=== PATIENT | female | born 1990 | race American Indian/Alaskan Native ===

== ENCOUNTER 2017-06-08 21:04 | Emergency (ER) | payer MEDICAID ==
[2017-06-08 21:50] LABS: Hematocrit 40.3 % (30.3-42.9); Hemoglobin 13.4 gm/dl (10.1-14.3); Mean Corpuscular HGB Conc 33 % (30-34); Mean Corpuscular Hemoglobin 32 pg (28-32); Mean Corpuscular Volume 95 fl (79-97); Platelet Count 255 K/mm3 (140-440); Red Blood Count 4.24 M/mm3 (3.65-5.03); Red Cell Distribution Width 12.5 % (13.2-15.2)
[2017-06-08 22:10] LABS: Anion Gap 16 mmol/L; Blood Urea Nitrogen 9 mg/dL (7-17); Calcium 9.4 mg/dL (8.4-10.2); Carbon Dioxide 26 mmol/L (22-30); Chloride 99.8 mmol/L (98-107); Glucose 95 mg/dL (65-100); Potassium 4.1 mmol/L (3.6-5.0); Sodium 138 mmol/L (137-145)
--- NOTE | 2017-06-08 23:09 | Ultrasound Report ---
FINAL REPORT PROCEDURE: US OB TRANSVAGINAL TECHNIQUE: Real-time transvaginal sonography of the uterus, placenta, amniotic fluid, adnexa, and fetus was performed with image documentation. Measurements were obtained to determine age/size. M-mode Doppler was used to document heartbeat. HISTORY: VAG BLEED WITH PREG COMPARISON: No prior studies are available for comparison. FINDINGS: CRL: 14.3 mm, which corresponds to a gestational age of: 7 weeks, 5 days. Yolk Sac: Normal. Embryonic Cardiac Activity: None detected Gestational Sac: Normal. Amniotic fluid: Normal. Cervix: Normal. Right Ovary: Normal. Left Ovary: Normal. Estimated delivery date: 01/20/2018 Uterus and adnexa: Normal. IMPRESSION: Intrauterine gestation at 7 weeks and 5 days. There is no detected cardiac activity indicating high suspicion of demise.
--- NOTE | 2017-06-08 23:09 | Ultrasound Report ---
FINAL REPORT PROCEDURE: US OB \T\lt; = 14 WEEKS FETUS TECHNIQUE: Real-time transabdominal sonography of the uterus, placenta, amniotic fluid, adnexa, and fetus was performed with image documentation. Measurements were obtained to determine age/size. M-mode Doppler was used to document heartbeat. CPT 34593 HISTORY: VAG BLEED WITH PREG COMPARISON: No prior studies are available for comparison. FINDINGS: CRL: 14.3 mm, which corresponds to a gestational age of: 7 weeks, 5 days. Yolk Sac: Normal. Embryonic Cardiac Activity: None detected Gestational Sac: Normal. Amniotic fluid: Normal. Cervix: Normal. Right Ovary: Normal. Left Ovary: Normal. Estimated delivery date: 01/20/2018 Uterus and adnexa: Normal. IMPRESSION: Intrauterine gestation at 7 weeks and 5 days. There is no detected cardiac activity indicating high suspicion of demise.
[2017-06-08 23:30] LABS: Bacteria,Urine 2+ /HPF (Negative); Bilirubin,Urine NEG (Negative); Blood,Urine LG (Negative); Ketones,Urine NEG (Negative); Leukocyte Esterase,Urine SM (Negative); Mucus,Urine 3+ /HPF; Nitrite,Urine NEG (Negative); Protein,Urine <15 mg/dL mg/dL (Negative); Urobilinogen,Urine < 2.0 mg/dL (<2.0)
--- NOTE | 2017-06-09 00:56 | Emergency Department Report ---
ED Female HPI - General Chief complaint: Urogenital-Female Stated complaint: PREG 8WKS/VAG BLEEDING Time Seen by Provider: 06/09/17 03:50 Source: patient Mode of arrival: Ambulatory Limitations: No Limitations - History of Present Illness Initial comments: Patient here reports that she is 8 weeks and having vaginal bleeding. She says she spot in but not passing any clots. She denies any abdominal pain or discharge. She denies any back pain. She denies any urinary burning frequency or urgency. She said this is her second and she had an with the first. Denies any medical or surgical history. Patient says she has an appointment to see [facility] in [facility] this Saturday but she came in because she was having some spotting. Last Menstrual period was 03/26/2017 MD Complaint: vaginal bleeding (vaginal spotting ) -: This morning Severity scale (0 -10): 0 Are you Now?: Yes (8 weeks) Last Menstrual Period: 03/26/17 EDC: 12/31/17 Associated Symptoms: vaginal bleeding (spotting). denies: vaginal discharge, abdominal pain, nausea/vomiting, fever/chills, headaches, loss of appetite, dysuria, hematuria, rash, seizure, shortness of breath, syncope, weakness - Related Data Sexually active: No : 2 (second , one ) Previous Rx's Medication Instructions Recorded Last Taken Type Nitrofurantoin [place]/M-Cryst 100 mg PO Q12HR #14 capsule 06/09/17 Unknown Rx [Macrobid CAP] metroNIDAZOLE [Vandazole GEL] 70 gm VG QHS #7 gel.w.appl 06/09/17 Unknown Rx Allergies Allergy/AdvReac Type Severity Reaction Status Date / Time No Known Allergies Allergy Unverified 06/08/17 21:24 ED Review of Systems ROS: Stated complaint: PREG 8WKS/VAG BLEEDING Other details as noted in HPI Comment: All other systems reviewed and negative Constitutional: no symptoms reported Eyes: denies: eye pain, eye discharge, vision change Respiratory: no symptoms reported Cardiovascular: denies: chest pain, palpitations, edema, syncope Gastrointestinal: denies: abdominal pain, nausea, vomiting, diarrhea, constipation, hematemesis, melena, hematochezia Genitourinary: other (S renal spot ). denies: urgency, dysuria, frequency, hematuria, discharge, abnormal menses, dyspareunia Musculoskeletal: denies: back pain, joint swelling, arthralgia, myalgia Skin: denies: rash Neurological: denies: headache, weakness, numbness, paresthesias, confusion, abnormal gait, vertigo ED Past Medical Hx - Past Medical History Previous Medical History?: No - Surgical History Past Surgical History?: No - Family History Family history: no significant - Social History Smoking Status: Never Smoker Substance Use Type: None - Medications Home Medications: Home Medications Medication Instructions Recorded Confirmed Last Taken Type Nitrofurantoin [place]/M-Cryst 100 mg PO Q12HR #14 capsule 06/09/17 Unknown Rx [Macrobid CAP] metroNIDAZOLE [Vandazole GEL] 70 gm VG QHS #7 gel.w.appl 06/09/17 Unknown Rx ED Physical Exam - General Limitations: No Limitations General appearance: alert, in no apparent distress - Head Head exam: Present: atraumatic, normocephalic, normal inspection - Eye Eye exam: Present: normal appearance, PERRL, EOMI. Absent: periorbital swelling , periorbital tenderness Pupils: Present: normal accommodation - ENT ENT exam: Present: normal exam, normal orophraynx, mucous membranes moist - Neck Neck exam: Present: normal inspection, full ROM. Absent: tenderness, meningismus, lymphadenopathy - Respiratory Respiratory exam: Present: normal lung sounds bilaterally. Absent: respiratory distress, wheezes, chest wall tenderness, accessory muscle use - Cardiovascular Cardiovascular Exam: Present: normal rhythm, tachycardia, normal heart sounds - GI/Abdominal GI/Abdominal exam: Present: soft, normal bowel sounds. Absent: distended, tenderness, guarding, rebound, rigid, organomegaly, mass, bruit, pulsatile mass , hernia - External exam: Present: normal external exam. Absent: erythema, swelling, lesions, lacerations, ecchymosis, bleeding Speculum exam: Present: vaginal discharge, cervical discharge. Absent: erythema , vaginal bleeding, foreign body, tissue, laceration Bi-manual exam: Present: normal bi-manual exam. Absent: cervical motion tendernes, adnexal tenderness, adnexal mass, uterine enlargement, uterine tenderness - Expanded Exam Expanded Female exam: Absent: vaginal laceration, tissue present in vagina, herpetic lesions, vulvar erythema, vulvar tenderness, foreign body External exam: Present: normal Amniotic fluid: Present: none Speculum exam: Present: cervical OS closed, vaginal discharge. Absent: vaginal bleeding - Extremities Exam Extremities exam: Present: normal inspection, full ROM, normal capillary refill. Absent: tenderness, pedal edema, joint swelling, calf tenderness - Back Exam Back exam: Present: normal inspection, full ROM. Absent: tenderness, CVA tenderness (R), CVA tenderness (L), muscle spasm, paraspinal tenderness, vertebral tenderness, rash noted - Neurological Exam Neurological exam: Present: alert, oriented X3, normal gait, reflexes normal. Absent: motor sensory deficit - Psychiatric Psychiatric exam: Present: normal affect, normal mood - Skin Skin exam: Present: warm, dry, intact, normal color. Absent: rash ED Course Vital Signs 06/08/17 21:22 Temperature 98.2 F Pulse Rate 113 H Respiratory 18 Rate Blood Pressure 134/87 O2 Sat by Pulse 100 Oximetry - Reevaluation(s) Reevaluation #1: 06/09/17 05:14 Patient received Rocephin 1 g to cover UTI and possible gonorrhea and azithromycin 1 g to cover possible chlamydia. ED Medical Decision Making - Lab Data Result diagrams: 06/08/17 21:28 06/08/17 21:28 Lab Results 06/08/17 06/08/17 06/08/17 Range/Units 21:28 21:28 21:28 WBC 8.0 (4.5-11.0) K/mm3 RBC 4.24 (3.65-5.03) M/mm3 Hgb 13.4 (10.1-14.3) gm/dl Hct 40.3 (30.3-42.9) % MCV 95 (79-97) fl MCH 32 (28-32) pg MCHC 33 (30-34) % RDW 12.5 L (13.2-15.2) % Plt Count 255 (140-440) K/mm3 Sodium 138 (137-145) mmol/L Potassium 4.1 (3.6-5.0) mmol/L Chloride 99.8 (98-107) mmol/L Carbon Dioxide 26 (22-30) mmol/L Anion Gap 16 mmol/L BUN 9 (7-17) mg/dL Creatinine 0.6 L (0.7-1.2) mg/dL Estimated GFR > 60 ml/min BUN/Creatinine Ratio 15.00 % Glucose 95 (65-100) mg/dL Calcium 9.4 (8.4-10.2) mg/dL HCG, Quant 81421 H (0-4) mIU/mL Urine Color (Yellow) Urine Turbidity (Clear) Urine pH (5.0-7.0) Ur Specific [place] (1.003-1.030) Urine Protein (Negative) mg/dL Urine Glucose (UA) (Negative) mg/dL Urine Ketones (Negative) mg/dL Urine Blood (Negative) Urine Nitrite (Negative) Urine Bilirubin (Negative) Urine Urobilinogen (<2.0) mg/dL Ur Leukocyte Esterase (Negative) Urine WBC (Auto) (0.0-6.0) /HPF Urine RBC (Auto) (0.0-6.0) /HPF U Epithel Cells (Auto) (0-13.0) /HPF Urine Bacteria (Auto) (Negative) /HPF Calcium Oxalate Crystal Urine Mucus /HPF Blood Type 06/08/17 06/08/17 Range/Units 21:28 22:21 WBC (4.5-11.0) K/mm3 RBC (3.65-5.03) M/mm3 Hgb (10.1-14.3) gm/dl Hct (30.3-42.9) % MCV (79-97) fl MCH (28-32) pg MCHC (30-34) % RDW (13.2-15.2) % Plt Count (140-440) K/mm3 Sodium (137-145) mmol/L Potassium (3.6-5.0) mmol/L Chloride (98-107) mmol/L Carbon Dioxide (22-30) mmol/L Anion Gap mmol/L BUN (7-17) mg/dL Creatinine (0.7-1.2) mg/dL Estimated GFR ml/min BUN/Creatinine Ratio % Glucose (65-100) mg/dL Calcium (8.4-10.2) mg/dL HCG, Quant (0-4) mIU/mL Urine Color Domitila (Yellow) Urine Turbidity Cloudy (Clear) Urine pH 5.0 (5.0-7.0) Ur Specific Ovalo 1.029 (1.003-1.030) Urine Protein <15 mg/dl (Negative) mg/dL Urine Glucose (UA) Neg (Negative) mg/dL Urine Ketones Neg (Negative) mg/dL Urine Blood Lg (Negative) Urine Nitrite Neg (Negative) Urine Bilirubin Neg (Negative) Urine Urobilinogen < 2.0 (<2.0) mg/dL Ur Leukocyte Esterase Sm (Negative) Urine WBC (Auto) 4.0 (0.0-6.0) /HPF Urine RBC (Auto) 24.0 (0.0-6.0) /HPF U Epithel Cells (Auto) 32.0 H (0-13.0) /HPF Urine Bacteria (Auto) 2+ (Negative) /HPF Calcium Oxalate Crystal 1+ Urine Mucus 3+ /HPF Blood Type A POSITIVE Urine culture pending Wet prep shows less than 20% clue cells, few polymorphonuclear cell and patient with significant vaginal and cervix discharge. No yeast or Trichomonas. Gonorrhea and chlamydia pending - Radiology Data Radiology results: report reviewed Ultrasound OB transvaginal revealed intrauterine gestation at 7 weeks and 5 days. There is no detected cardiac activity indicated high suspicion of demise. Left and right ovary is normal. Estimated date of delivery is 2017. Uterus and adnexa is normal no embryonic cardiac activity detected. Gestational sac is normal amniotic fluid is normal cervix is normal - Medical Decision Making ED course: Pt here reports vaginal spotting that started in the morning in without passing any blood clots. She was not having any abdominal or back pain or urinary burning frequency or urgency. Ports that she was 8 weeks . Transvaginal and Transabdominal Revealed at 7 Weeks and 5 Days with No Cardiac Activity Indicated High Suspicion of Demise. This Was Communicated with Patient. Patient Has an Appointment with [facility] TECHNIC[facility] on 2016 for Ultrasound and Other Tests and First Visit. Please see normal, BMP normal, quantitative hCG place patient at approximately 7 weeks . Urinalysis with 2+ bacteria, small leukocyte Estrace, possible contamination due to presence of epithelial cell, cloudy urine with large amount of blood. Urine culture sent. Wet prep revealed less than 20% clue cell , no trichomonas or yeast cells. Few polymorphonuclear cells seen. Aredia and chlamydia is pending. Discussed the patient due to presence of polymorphonuclear cell is a possibility that she could be positive for gonorrhea and chlamydia and she said that she practices unsafe sex and does not know if partner has gonorrhea chlamydia and would like to be treated. Patient is aware of ultrasound results and said that she'll follow-up with her [facility] TECHNICIAN as scheduled on 06/11/2017. She is not having any vaginal spotting or abdominal pain at present. I discussed the patient that I'll treat her for gonorrhea and chlamydia and also will be treated for bacterial vaginosis and urinary tract infection. PT given Rocephin 1 g IM to treat gonorrhea and urinary tract infection and azithromycin 1 g to treat chlamydia without any adverse reaction. Discharged home in stable condition Diagnostic/labs: The radiologist's report for ultrasound transvaginal OB and abdominal OB ultrasound. The laboratory report for urinalysis, BMP and CBC. The microbiology report for wet prep results. Assessment/plan 1. Bacterial vaginosis 2. Urinary tract infection with urine culture pending 3. Suspect STD in early -Empirically treated for gonorrhea and chlamydia with Rocephin and azithromycin 4. Vaginal bleeding in an early ultrasound suspect demise due to inability to detect heart rate 5. Threatened miscarriage Patient discharged home and encouraged to keep her appointment on for first visit. Patient given prescription for Macrobid, Vandazole vaginal suppository to cover bacterial vaginosis and vitamin. Critical care attestation.: If time is entered above; I have spent that time in minutes in the direct care of this critically ill patient, excluding procedure time. ED Disposition Clinical Impression: Threatened miscarriage in early , heart rate nonreactive, Vaginal bleeding in , Bacterial vaginosis, Acute cystitis with hematuria, Concern about sexually transmitted disease in female without diagnosis Vaginal discharge during Qualifiers: Trimester: first trimester Qualified Code(s): O26.891 - Other specified related conditions, first trimester; N89.8 - Other specified noninflammatory disorders of vagina Disposition: DC-01 TO HOME OR SELFCARE Is pt being admited?: No Does the pt Need Aspirin: No Condition: Stable Instructions: Bacterial Vaginosis (ED), Threatened Miscarriage (ED), Urinary Tract Infection in Women (ED), Safe Sex (ED), Sexually Transmitted Diseases (ED) Additional Instructions: Ultrasound report suggests that there is a high suspicion for due to no cardiac activity. Please take antibiotic as prescribed for urinary tract infection You were treated for gonorrhea and chlamydia and emergency room. Please practice safe sex. Please take Vandazole suppository daily at bedtime for 7 days to cover bacterial vaginosis Please increase your fluid intake Please keep your appointment on 06/11/2017 with your [facility] TECHNICIAN Prescriptions: metroNIDAZOLE [Vandazole GEL] 70 gm VG QHS #7 gel.w.appl Nitrofurantoin [place]/M-Cryst [Macrobid CAP] 100 mg PO Q12HR #14 capsule Referrals: Your, OBGYN [Other] - 06/11/17 Forms: STI Treatment and Prevention, Work/School Release Form(ED)
[2017-06-09] MEDS ORDERED: ROCEPHIN IM STA (05:05)
[2017-06-09] MEDS ORDERED: XYLOCAINE 1% MPF 5 mL INFILTRATI ONE (05:06)
[2017-06-09] MEDS ORDERED: ZITHROMAX PO ONE (05:06)
[2017-06-09 05:49] VITALS: BP 129/83
== END 2017-06-09 05:48 | disposition home or self-care (01) ==
LOC: ED 21:04
DX: O20.0 Threatened abortion (principal); O20.9 Hemorrhage in early pregnancy, unspecified; O23.591 Infection of other part of genital tract in pregnancy, first trimester; N76.0 Acute vaginitis; O23.11 Infections of bladder in pregnancy, first trimester; Z3A.08 8 weeks gestation of pregnancy
CPT/HCPCS: 36415; 76801; 76817; 80048; 81001; 84702; 85027; 86900; 86901; 87210; 87591; 96372; 99284; J0696

== ENCOUNTER 2018-02-02 00:10 | Emergency (ER) | payer MEDICAID ==
--- NOTE | 2018-02-02 03:42 | Emergency Department Report ---
ED ENT HPI - General Chief complaint: Earache Stated complaint: RIGHT EAR PAIN Time Seen by Provider: 02/02/18 02:13 Source: patient Mode of arrival: Ambulatory Limitations: No Limitations - History of Present Illness Initial comments: This is a 27 y.o. female that presents with right ear pain for 3 days. Patient reports pain as 10/10 on scale. It is a throbbing pain that is constant. She is hearing ringing in right ear. She has not tried cleaning ear out or taking anything for pain. Denies recent travel, allergies, URI, discharge, swelling, or redness. MD complaint: ear pain (right ear) -: days(s) (3) Location: R ear Severity: severe Severity scale (0 -10): 9 Quality: other (throbbing) Consistency: constant Improves with: none Worsens with: swallowing, eating Associated Symptoms: tinnitus. denies: fever, cough, gum swelling, toothache, pain with swallowing, sore throat, hearing loss, discharge from ear, rhinorrhea - Related Data Previous Rx's Medication Instructions Recorded Last Taken Type Nitrofurantoin [place]/M-Cryst 100 mg PO Q12HR #14 capsule 06/09/17 Unknown Rx [Macrobid CAP] metroNIDAZOLE [Vandazole GEL] 70 gm VG QHS #7 gel.w.appl 06/09/17 Unknown Rx Amoxicillin 500 mg PO BID 10 Days #20 capsule 02/02/18 Unknown Rx Ibuprofen 800 mg PO Q6H PRN #15 tablet 02/02/18 Unknown Rx Allergies Allergy/AdvReac Type Severity Reaction Status Date / Time No Known Allergies Allergy Unverified 06/08/17 21:24 ED Dental HPI - General Chief complaint: Earache Stated complaint: RIGHT EAR PAIN Time Seen by Provider: 02/02/18 02:13 Source: patient Mode of arrival: Ambulatory Limitations: No Limitations - Related Data Previous Rx's Medication Instructions Recorded Last Taken Type Nitrofurantoin [place]/M-Cryst 100 mg PO Q12HR #14 capsule 06/09/17 Unknown Rx [Macrobid CAP] metroNIDAZOLE [Vandazole GEL] 70 gm VG QHS #7 gel.w.appl 06/09/17 Unknown Rx Amoxicillin 500 mg PO BID 10 Days #20 capsule 02/02/18 Unknown Rx Ibuprofen 800 mg PO Q6H PRN #15 tablet 02/02/18 Unknown Rx Allergies Allergy/AdvReac Type Severity Reaction Status Date / Time No Known Allergies Allergy Unverified 06/08/17 21:24 ED Review of Systems ROS: Stated complaint: RIGHT EAR PAIN Other details as noted in HPI Constitutional: denies: chills, fever ENT: ear pain (right ear pain and ringing). denies: throat pain, dental pain, hearing loss, epistaxis, congestion Respiratory: denies: cough, shortness of breath, wheezing Cardiovascular: denies: chest pain, palpitations Gastrointestinal: denies: abdominal pain, nausea, diarrhea Skin: denies: rash, lesions Neurological: denies: headache, weakness, paresthesias Psychiatric: denies: anxiety, depression ED Past Medical Hx - Past Medical History Previous Medical History?: No - Surgical History Past Surgical History?: Yes Additional Surgical History: D&C - Social History Smoking Status: Never Smoker Substance Use Type: None - Medications Home Medications: Home Medications Medication Instructions Recorded Confirmed Last Taken Type Nitrofurantoin [place]/M-Cryst 100 mg PO Q12HR #14 capsule 06/09/17 Unknown Rx [Macrobid CAP] metroNIDAZOLE [Vandazole GEL] 70 gm VG QHS #7 gel.w.appl 06/09/17 Unknown Rx Amoxicillin 500 mg PO BID 10 Days #20 capsule 02/02/18 Unknown Rx Ibuprofen 800 mg PO Q6H PRN #15 tablet 02/02/18 Unknown Rx ED Physical Exam - General Limitations: No Limitations General appearance: alert, in no apparent distress - ENT ENT exam: Present: normal orophraynx, mucous membranes moist, normal external ear exam. Absent: TM's normal bilaterally (bilateral cerumen impaction, Post irrigation, TM erthematous, bulging, and diminished light reflex) - Respiratory Respiratory exam: Present: normal lung sounds bilaterally. Absent: respiratory distress, wheezes, rales, rhonchi, stridor, accessory muscle use, decreased breath sounds - Cardiovascular Cardiovascular Exam: Present: regular rate, normal rhythm, normal heart sounds. Absent: systolic murmur, diastolic murmur, rubs, gallop - GI/Abdominal GI/Abdominal exam: Present: soft, normal bowel sounds. Absent: distended, tenderness, guarding, rebound, rigid, organomegaly, mass - Neurological Exam Neurological exam: Present: alert, oriented X3, normal gait - Psychiatric Psychiatric exam: Present: normal affect, normal mood - Skin Skin exam: Present: warm, dry, intact, normal color. Absent: rash ED Course Vital Signs 02/02/18 02/02/18 01:06 01:27 Temperature 97.4 F L 97.4 F L Pulse Rate 86 82 Respiratory 18 16 Rate Blood Pressure 117/86 117/86 O2 Sat by Pulse 100 100 Oximetry ED Medical Decision Making - Medical Decision Making This is a 27 y.o. female with right ear pain for 3 days. Patient is stable and was examined by me. Vitals normal. Physical assessment susceptible of cerumen impaction. Irrigation ordered. Post irrigation, TM erthematous, bulging, and diminished light reflex. Otitis media of right ear. Start amoxicillin and ibuprofen for pain. Discussed plan with patient and she agreed with plan. Discharged home in stable condition. Follow up with PCP in 24-72 hours. Critical care attestation.: If time is entered above; I have spent that time in minutes in the direct care of this critically ill patient, excluding procedure time. ED Disposition Clinical Impression: Impacted cerumen of right ear Otitis media Qualifiers: Otitis media type: suppurative Chronicity: acute Laterality: right Recurrence: not specified as recurrent Spontaneous tympanic membrane rupture: without spontaneous rupture Qualified Code(s): H66.001 - Acute suppurative otitis media without spontaneous rupture of ear drum, right ear Disposition: - TO HOME OR SELFCARE Is pt being admited?: No Does the pt Need Aspirin: No Condition: Stable Instructions: Barotitis Media (ED), Cerumen Impaction (ED) Additional Instructions: Don't use cotton-tipped applicators to clean ears. Apply a few drops of Debrox, mineral oil, olive oil, or saline solution into ear (s) nightly for a few nights to soften the wax. Debrox is one of the over the counter wax removal solutions and there are kits if natural solutions don't work. Complete the full course of antibiotics as prescribed. Don't drink alcohol while taking antibiotics and for 24 hours after completion. Follow up with PCP or ENT if symptoms are not improved after 3 days of antibiotic therapy. Prescriptions: Amoxicillin 500 mg PO BID 10 Days #20 capsule Ibuprofen 800 mg PO Q6H PRN #15 tablet PRN Reason: Pain Referrals: [facility] [Outside] - 3-5 Days JORGE ALBERTO CARRANZA MD [Staff Physician] - 3-5 Days [facility] [Provider Group] - 3-5 Days Time of Disposition: 04:21 Print Language: GE[place]GI[place]
[2018-02-02 04:33] VITALS: BP 119/84
== END 2018-02-02 04:33 | disposition home or self-care (01) ==
LOC: ED 00:10
DX: H66.001 Acute suppurative otitis media without spontaneous rupture of ear drum, right ear (principal); H61.21 Impacted cerumen, right ear
CPT/HCPCS: 99282

== ENCOUNTER 2019-06-22 06:03 | Emergency (ER) | payer SELFPAY ==
[2019-06-22 06:08] VITALS: BP 122/74
[2019-06-22 07:04] LABS: Bilirubin,Urine NEG (Negative); Blood,Urine NEG (Negative); Color,Urine Yellow (Yellow); Mucus,Urine FEW /HPF; Protein,Urine <15 mg/dL mg/dL (Negative); Urobilinogen,Urine < 2.0 mg/dL (<2.0)
[2019-06-22 07:09] LABS: HCG Qualitative,Urine Negative (Negative)
[2019-06-22 07:20] LABS: Alanine Aminotransferase 9 units/L (7-56); Albumin 3.7 g/dL (3.9-5); BUN/Creatinine Ratio 15; Blood Urea Nitrogen 9 mg/dL (7-17); Calcium 9.2 mg/dL (8.4-10.2); Hemolysis Index 14
--- NOTE | 2019-06-22 07:36 | Emergency Department Report ---
ED Abdominal Pain HPI - General Chief Complaint: Abdominal Pain Stated Complaint: ABD PAIN Time Seen by Provider: 06/22/19 07:17 Source: patient Mode of arrival: Ambulatory Limitations: No Limitations - History of Present Illness Initial Comments: This is a 28-year-old -[place] female who presents to the emergency room with abdominal pain and vaginal discharge for a couple of days. No significant past medical history. Last menstrual period 05/31/2019, A2, 1 miscarriage and 1 . Patient denies back pain, dysuria, urgency, fever, nausea, vomiting, or diarrhea. MD Complaint: abdominal pain Onset/Timin -: days(s) Location: suprapubic Radiation: none Migration to: no migration Severity: moderate Severity scale (0 -10): 5 Quality: cramping Consistency: intermittent Improves With: nothing Worsens With: nothing Associated Symptoms: denies other symptoms - Related Data LMP Date: 05/31/19 Previous Rx's Medication Instructions Recorded Last Taken Type Nitrofurantoin [place]/M-Cryst 100 mg PO Q12HR #14 capsule 06/09/17 Unknown Rx [Macrobid CAP] metroNIDAZOLE [Vandazole GEL] 70 gm VG QHS #7 gel.w.appl 06/09/17 Unknown Rx Amoxicillin 500 mg PO BID 10 Days #20 capsule 02/02/18 Unknown Rx Ibuprofen [Ibuprofen 800] 800 mg PO Q6H PRN #15 tablet 02/02/18 Unknown Rx Fluconazole [Diflucan TAB] 150 mg PO ONCE #1 tablet 06/22/19 Unknown Rx metroNIDAZOLE [Flagyl TAB] 500 mg PO Q12HR #14 tab 06/22/19 Unknown Rx Allergies Allergy/AdvReac Type Severity Reaction Status Date / Time No Known Allergies Allergy Verified 06/22/19 06:06 ED Review of Systems ROS: Stated complaint: ABD PAIN Other details as noted in HPI Constitutional: denies: chills, fever Respiratory: denies: cough, shortness of breath, wheezing Cardiovascular: denies: chest pain, palpitations Gastrointestinal: abdominal pain. denies: nausea, diarrhea Genitourinary: discharge. denies: urgency, dysuria Musculoskeletal: denies: back pain, joint swelling, arthralgia Skin: denies: rash, lesions Neurological: denies: headache, weakness, paresthesias ED Past Medical Hx - Past Medical History Previous Medical History?: No - Surgical History Past Surgical History?: Yes Additional Surgical History: D&C x1 - Social History Smoking Status: Never Smoker Substance Use Type: None - Medications Home Medications: Home Medications Medication Instructions Recorded Confirmed Last Taken Type Nitrofurantoin [place]/M-Cryst 100 mg PO Q12HR #14 capsule 06/09/17 Unknown Rx [Macrobid CAP] metroNIDAZOLE [Vandazole GEL] 70 gm VG QHS #7 gel.w.appl 06/09/17 Unknown Rx Amoxicillin 500 mg PO BID 10 Days #20 capsule 02/02/18 Unknown Rx Ibuprofen [Ibuprofen 800] 800 mg PO Q6H PRN #15 tablet 02/02/18 Unknown Rx Fluconazole [Diflucan TAB] 150 mg PO ONCE #1 tablet 06/22/19 Unknown Rx metroNIDAZOLE [Flagyl TAB] 500 mg PO Q12HR #14 tab 06/22/19 Unknown Rx ED Physical Exam - General Limitations: No Limitations General appearance: alert, in no apparent distress, obese - Respiratory Respiratory exam: Present: normal lung sounds bilaterally. Absent: respiratory distress - Cardiovascular Cardiovascular Exam: Present: regular rate, normal rhythm. Absent: systolic murmur, diastolic murmur, rubs, gallop - GI/Abdominal GI/Abdominal exam: Present: soft, normal bowel sounds. Absent: distended, tenderness, guarding, rebound, rigid, organomegaly - External exam: Present: normal external exam Speculum exam: Present: vaginal discharge (malodorous greenish ). Absent: cervical discharge, vaginal bleeding, foreign body, tissue, laceration Bi-manual exam: Present: normal bi-manual exam. Absent: cervical motion tendernes, adnexal tenderness, adnexal mass, uterine enlargement, uterine tenderness - Back Exam Back exam: Absent: CVA tenderness (R), CVA tenderness (L) - Neurological Exam Neurological exam: Present: alert, oriented X3, normal gait - Psychiatric Psychiatric exam: Present: normal affect, normal mood - Skin Skin exam: Present: warm, dry, intact, normal color. Absent: rash ED Course Vital Signs 06/22/19 06:08 Temperature 97.9 F Pulse Rate 92 H Respiratory 16 Rate Blood Pressure 122/74 [Right] O2 Sat by Pulse 98 Oximetry ED Medical Decision Making - Lab Data Result diagrams: 06/22/19 06:35 06/22/19 06:35 Lab Results 06/22/19 06/22/19 06/22/19 Range/Units 06:35 06:35 06:43 WBC 6.2 (4.5-11.0) K/mm3 RBC 4.32 (3.65-5.03) M/mm3 Hgb 13.3 (10.1-14.3) gm/dl Hct 39.8 (30.3-42.9) % MCV 92 (79-97) fl MCH 31 (28-32) pg MCHC 33 (30-34) % RDW 12.5 L (13.2-15.2) % Plt Count 235 (140-440) K/mm3 Lymph % (Auto) 25.3 (13.4-35.0) % [place] % (Auto) 7.7 H (0.0-7.3) % Eos % (Auto) 1.9 (0.0-4.3) % Baso % (Auto) 0.5 (0.0-1.8) % Lymph # 1.6 (1.2-5.4) K/mm3 [place] # 0.5 (0.0-0.8) K/mm3 Eos # 0.1 (0.0-0.4) K/mm3 Baso # 0.0 (0.0-0.1) K/mm3 Seg Neutrophils % 64.6 (40.0-70.0) % Seg Neutrophils # 4.0 (1.8-7.7) K/mm3 Sodium 139 (137-145) mmol/L Potassium 4.0 (3.6-5.0) mmol/L Chloride 103.1 (98-107) mmol/L Carbon Dioxide 25 (22-30) mmol/L Anion Gap 15 mmol/L BUN 9 (7-17) mg/dL Creatinine 0.6 L (0.7-1.2) mg/dL Estimated GFR > 60 ml/min BUN/Creatinine Ratio 15 % Glucose 111 H (65-100) mg/dL Calcium 9.2 (8.4-10.2) mg/dL Total Bilirubin 0.40 (0.1-1.2) mg/dL AST 10 (5-40) units/L ALT 9 (7-56) units/L Alkaline Phosphatase 46 (35-129) units/L Total Protein 6.9 (6.3-8.2) g/dL Albumin 3.7 L (3.9-5) g/dL Albumin/Globulin Ratio 1.2 % Urine Color Yellow (Yellow) Urine Turbidity Slightly-cloudy (Clear) Urine pH 6.0 (5.0-7.0) Ur Specific O[place]o 1.011 (1.003-1.030) Urine Protein <15 mg/dl (Negative) mg/dL Urine Glucose (UA) Neg (Negative) mg/dL Urine Ketones Neg (Negative) mg/dL Urine Blood Neg (Negative) Urine Nitrite Neg (Negative) Urine Bilirubin Neg (Negative) Urine Urobilinogen < 2.0 (<2.0) mg/dL Ur Leukocyte Esterase Tr (Negative) Urine WBC (Auto) 2.0 (0.0-6.0) /HPF Urine RBC (Auto) 1.0 (0.0-6.0) /HPF U Epithel Cells (Auto) 8.0 (0-13.0) /HPF Urine Mucus Few /HPF Urine HCG, Qual Negative (Negative) - Medical Decision Making Patient was examined by me. Patient is nontoxic appearing and stable. Vitals are normal. Obtained labs and pelvic exam. Negative abdominal tenderness on focal exam, which no radiograph is indicated at this time. Wet prep positive f or clue cells and yeast, negative trichomoniasis. All other labs unremarkable. Patient will be treated for acute vaginitis. Start metronidizole and diflucan. Patient informed of results. Instructed to complete antibiotics as prescribed. Follow up with PCP or return to the ER with worsening symptoms. Patient discharged home in stable condition. Critical care attestation.: If time is entered above; I have spent that time in minutes in the direct care of this critically ill patient, excluding procedure time. ED Disposition Clinical Impression: Vaginal discharge, Pelvic pain, Acute vaginitis Disposition: DC- TO HOME OR SELFCARE Is pt being admited?: No Does the pt Need Aspirin: No Condition: Stable Instructions: Bacterial Vaginosis (ED), Vulvovaginal Candidiasis (ED) Additional Instructions: Complete antibiotics as prescribed. Avoid drinking alcohol while taking antibiotics and for up to 24 hours of completion. Follow up with a group product manager. Prescriptions: Fluconazole [Diflucan TAB] 150 mg PO ONCE #1 tablet metroNIDAZOLE [Flagyl TAB] 500 mg PO Q12HR #14 tab Referrals: [facility] [Provider Group] - 3-[facility] Days [facility]Provider Group] - 3-5 Days TERRY ECHEVERRIA MD [Staff Physician] - 3-5 Days [facility] [Provider Group] - 3-5 Days Forms: Work/School Release Form(ED) Time of Disposition: 09:20
[2019-06-22 08:13] LABS: Basophils % (Auto) 0.5 % (0.0-1.8); Eosinophils # (Auto) 0.1 K/mm3 (0.0-0.4); Eosinophils % (Auto) 1.9 % (0.0-4.3); Hematocrit 39.8 % (30.3-42.9); Hemoglobin 13.3 gm/dl (10.1-14.3); Lymphocytes # (Auto) 1.6 K/mm3 (1.2-5.4); Lymphocytes % (Auto) 25.3 % (13.4-35.0); Mean Corpuscular HGB Conc 33 % (30-34); Mean Corpuscular Volume 92 fl (79-97); Monocytes # (Auto) 0.5 K/mm3 (0.0-0.8); Monocytes % (Auto) 7.7 % (0.0-7.3); Platelet Count 235 K/mm3 (140-440); Red Blood Count 4.32 M/mm3 (3.65-5.03); Red Cell Distribution Width 12.5 % (13.2-15.2)
== END 2019-06-22 09:26 | disposition home or self-care (01) ==
LOC: ED 06:03
DX: N76.0 Acute vaginitis (principal); B96.89 Other specified bacterial agents as the cause of diseases classified elsewhere; Z79.899 Other long term (current) drug therapy
CPT/HCPCS: 36415; 80053; 81001; 81025; 85025; 87210; 87591; 99284

== ENCOUNTER 2019-07-28 09:20 | Emergency (ER) | payer SELFPAY ==
--- NOTE | 2019-07-28 10:51 | Emergency Department Report ---
HPI - General Chief Complaint: Skin Rash Time Seen by Provider: 07/28/19 10:32 - HPI HPI: 28-year-old -N[place]ian female presents to the emergency department with complaint of development of a rash or some lesions to the chin over the past few days. There are small raised bumps in a group. No bleeding, weeping or drainage. Patient says that she use some type of new facial cream 2 weeks ago that was supposed to get rid of back spots and imperfections. She otherwise denies any past medical history. ED Past Medical Hx - Past Medical History Previous Medical History?: No - Surgical History Past Surgical History?: Yes Additional Surgical History: D&C x1 - Social History Smoking Status: Never Smoker Substance Use Type: None - Medications Home Medications: Home Medications Medication Instructions Recorded Confirmed Last Taken Type Nitrofurantoin [place]/M-Cryst 100 mg PO Q12HR #14 capsule 06/09/17 Unknown Rx [Macrobid CAP] metroNIDAZOLE [Vandazole GEL] 70 gm VG QHS #7 gel.w.appl 06/09/17 Unknown Rx Amoxicillin 500 mg PO BID 10 Days #20 capsule 02/02/18 Unknown Rx Ibuprofen [Ibuprofen 800] 800 mg PO Q6H PRN #15 tablet 02/02/18 Unknown Rx Fluconazole [Diflucan TAB] 150 mg PO ONCE #1 tablet 06/22/19 Unknown Rx metroNIDAZOLE [Flagyl TAB] 500 mg PO Q12HR #14 tab 06/22/19 Unknown Rx Acyclovir [Zovirax Tab] 400 mg PO Q8H #21 tab 07/28/19 Unknown Rx ED Review of Systems ROS: Stated complaint: FACE/BREAKOUT Other details as noted in HPI Comment: All other systems reviewed and negative Constitutional: denies: chills, fever Skin: rash, lesions Neurological: denies: headache Physical Exam - Physical Exam Vital Signs: Vital Signs 07/28/19 09:40 Temperature 97.6 F Pulse Rate 95 H Respiratory 18 Rate Blood Pressure 140/91 [Right] O2 Sat by Pulse 95 Oximetry Physical Exam: GENERAL: The patient is well-developed well-nourished. HENT: Normocephalic. Atraumatic. Patient has moist mucous membranes. EYES: Extraocular motions are intact. NECK: Supple. Trachea is midline. ABDOMEN: There is no abdominal distention. SKIN: There is a small group of papules and one or 2 vesicles to the anterior right side of the chin. No current bleeding, weeping, drainage. NEURO: The patient is awake, alert, and oriented. The patient is cooperative. The patient has no focal neurologic deficits. Normal speech. MUSCULOSKELETAL: There is no tenderness or deformity. There is no evidence of acute injury. ED Course Vital Signs 07/28/19 09:40 Temperature 97.6 F Pulse Rate 95 H Respiratory 18 Rate Blood Pressure 140/91 [Right] O2 Sat by Pulse 95 Oximetry ED Medical Decision Making - Medical Decision Making This patient presents with a few days of some type of rash or lesions to the chin. She says that she used a new type of skin cream about 2 weeks ago but it was not only in the area where the patient has now developed these lesions. They look like papules with the potential of one or 2 vesicles. Patient will be placed on acyclovir for empiric treatment for possible cutaneous herpes. However, she has also been given a referral for dermatology. - Differential Diagnosis cutaneous herpes, contact dermatitis, chemical burn Critical Care Time: No Critical care attestation.: If time is entered above; I have spent that time in minutes in the direct care of this critically ill patient, excluding procedure time. ED Disposition Clinical Impression: Dermatitis Disposition: DC-01 TO HOME OR SELFCARE Is pt being admited?: No Condition: Stable Instructions: Acute Rash (ED) Additional Instructions: Please follow-up with a regional driver in the next few days and I will give you a referral for 2 of them. Return to the emergency Department with any worsening of your symptoms or any acute distress. Prescriptions: Acyclovir [Zovirax Tab] 400 mg PO Q8H #21 tab Referrals: KAMLA GODWIN MD [Staff Physician] - 2-3 Days EDISON SHAVER MD [Staff Physician] - 2-3 Days Time of Disposition: 10:50
[2019-07-28 11:25] VITALS: BP 136/86
== END 2019-07-28 11:00 | disposition home or self-care (01) ==
LOC: ED 09:20
DX: L30.9 Dermatitis, unspecified (principal); Z79.899 Other long term (current) drug therapy

== ENCOUNTER 2020-10-17 11:50 | Emergency (ER) | payer SELFPAY ==
[2020-10-17 12:00] VITALS: BP 125/83
--- NOTE | 2020-10-17 12:09 | Emergency Department Report ---
Chief Complaint: Urogenital-Female Stated Complaint: VAGINAL ISSUES Time Seen by Provider: 10/17/20 11:52 - HPI History of Present Illness: This is a 29-year-old female nontoxic, well in appearance with no signs of distress presents to the ED for pap smear. Patient stated she is asymptotic. Denies any vaginal bleeding or pelvic pain. Denies any penile discharge, testicular pain, or swelling. Patient denies any urinary symptoms. Patient denies any fever, chills, headache, nausea, vomiting, chest pain or shortness of breathe. denies any other symptoms or complaints. Denies any allergies or PMH. - Exam Vital Signs: Vital Signs 10/17/20 11:54 Temperature 97.6 F Pulse Rate 87 Respiratory 20 Rate Blood Pressure 125/83 O2 Sat by Pulse 99 Oximetry MSE screening note: Focused history and physical exam performed. Due to findings the following was ordered: ED Medical Decision Making - Medical Decision Making This is a 29-year-old female that presents with nonmedical emergency complaint. Patient denies any symptoms. I gave patient many different referrals to follow- up with pap smear. Patient was instructed to Follow-up with a OBGYN doctor in 3-5 days or if symptoms worsen and continue return to emergency room as soon as possible. At time of discharge, the patient does not seem toxic or ill in appearance. No acute signs of distress noted. Patient agrees to discharge treatment plan of care. No further questions noted by the patient. ED Disposition for MSE Clinical Impression: General medical exam Disposition: Z-07 MED SCREENING EXAM-LEFT Is pt being admited?: No Does the pt Need Aspirin: No Condition: Stable Additional Instructions: Follow-up with a OBGYN doctor in 3-5 days or if symptoms worsen and continue return to emergency room as soon as possible. Referrals: PRIMARY CAREMD [Primary Care Provider] - 3-5 Days [facility] [Provider [facility]] - 3-5 Days [facility] [Provider Group] - 3-5 Days Time of Disposition: 12:09
== END 2020-10-17 12:41 | disposition left against medical advice (07) ==
LOC: ED 11:50
DX: Z00.00 Encounter for general adult medical examination without abnormal findings (principal); Z53.21 Procedure and treatment not carried out due to patient leaving prior to being seen by health care provider